=== PATIENT | female | born 1950 ===

== ENCOUNTER 2017-09-08 17:20 | Emergency (ER) | payer MEDICARE, BC ==
[2017-09-08] MEDS ORDERED: HYDROCODONE/APAP 7.5/325MG TABLET PO ONE (18:05)
--- NOTE | 2017-09-08 18:10 | Emergency Department Record ---
History of Present Illness - General Chief Complaint: Fall Injury Stated Complaint: FALL/LEGS, LARM NECK PAIN Time Seen by Provider: 09/08/17 18:05 Source: Patient Mode of Arrival: Ambulatory Limitations: No limitations - History of Present Illness Initial Comments: 67 yo female presents to ED for evaluation of a fall on ice 1.5 hours ago. Patient reports injury to the left ankle, right knee, and left elbow, denies injury to the head, neck, chest or abdomen. Patient reports that she was able to stand and ambulate following the fall injury. Patient denies anticoagulation use, does report numerous previous [facility] MD Complaint: Fall Onset/Timin -: Minutes(s) Fall From: Standing When Fall Occurred: 1 hour [employer] Fall Witnessed: Yes, by family Place Fall Occurred: Street Loss of Consciousness: None Prolonged Down Time?: No Symptoms Prior to Fall: None Location: Neck Location - Extremities: Left: Elbow, Ankle, Right: Knee Severity: Moderate Severity scale (1-10): 7 Quality: Aching Context: Tripped/slipped Associated Symptoms: Denies - Meron Coma Scale Eye Response: (4) Open spontaneously Motor Response: (6) Obeys commands Verbal Response: (5) Oriented Meron Total: 15 - Related Data Home Medications Medication Instructions Recorded Confirmed Last Taken Amlodipine Besylate [Norvasc] 5 mg PO DAILY 09/08/17 09/08/17 09/08/17 Esomeprazole Magnesium [Nexium] 20 mg PO DAILY 09/08/17 09/08/17 09/08/17 Gabapentin [Neurontin] 900 mg PO Q8H 09/08/17 09/08/17 09/08/17 Levothyroxine Sodium [Synthroid] 125 mcg PO DAILY 09/08/17 09/08/17 09/08/17 Temazepam [Restoril] 30 mg PO QHS 09/08/17 09/08/17 09/07/17 Previous Rx's Medication Instructions Recorded Hydrocodone/Acetaminophen [[place] 1 each PO Q6H PRN #10 tablet 09/08/17 5-325 Tablet] Allergies Allergy/AdvReac Type Severity Reaction Status Date / Time No Known Drug Allergies Allergy Verified 09/08/17 17:30 Travel Screening - Travel/Exposure Within Last 30 Days Have you traveled within the last 30 days?: No - Travel/Exposure Within Last Year Have you traveled outside the [place] in the last year?: No - Additonal Travel Details Have you been exposed to anyone with a communicable illness?: No - Travel Symptoms Symptom Screening: None Review of Systems Constitutional: Denies: Chills, Fever, Malaise, Night sweats Eyes: Denies: Eye discharge, Eye pain ENT: Denies: Dental pain, Ear pain Respiratory: Denies: Cough, Dyspnea Cardiovascular: Denies: Chest pain, Dyspnea on exertion Endocrine: Denies: Fatigue, Heat or cold intolerance Gastrointestinal: Denies: Abdominal pain, Nausea, Vomiting Genitourinary: Denies: Incontinence, Retention Musculoskeletal: Reports: Arthralgia. Denies: Back pain, Gout, Joint swelling Skin: Reports: Other (abrasions). Denies: Bruising, Change in color Neurological: Denies: Abnormal gait, Confusion, Headache Psychiatric: Denies: Anxiety Hematological/Lymphatic: Denies: Anemia, Blood Clots Past Medical History - SOCIAL HISTORY Smoking Status: Never smoker Alcohol Use: None Drug Use: None - RESPIRATORY Hx Respiratory Disorders: No - CARDIOVASCULAR Hx Cardio Disorders: No - NEURO Hx Neuro Disorders: No - GI Hx GI Disorders: Yes Hx Reflux: Yes - Hx Genitourinary Disorders: Yes Hx Kidney Stones: Yes - ENDOCRINE Hx Endocrine Disorders: Yes Hx Thyroid Disease: Yes - MUSCULOSKELETAL Hx Musculoskeletal Disorders: No - PSYCH Hx Psych Problems: No - HEMATOLOGY/ONCOLOGY Hx Hematology/Oncology Disorders: Yes Hx Cancer: Yes Family Medical History Any Significant Family History?: Yes Hx Cancer: Brother/Sister Hx Diabetes: Brother/Sister Hx Heart Disease: Brother/Sister Hx Liver Disease: Brother/Sister Physical Exam - General General Appearance: Alert, Oriented x3, Cooperative, Mild distress Limitations: No limitations - Head Head exam: Atraumatic, Normocephalic, Normal inspection Head exam detail: negative: Abrasion, Contusion, Yoon's sign, General tenderness, Hematoma, Laceration - Eye Eye exam: Normal appearance. negative: Conjunctival injection, Periorbital swelling, Periorbital tenderness, Scleral icterus - ENT Ear exam: negative: Auricular hematoma, Auricular trauma Nasal Exam: negative: Active bleeding, Discharge, Dried blood, Foreign body Mouth exam: negative: Drooling, Laceration, Tongue elevation - Neck Neck exam: Normal inspection. negative: Meningismus, Tenderness - Respiratory Respiratory exam: Normal lung sounds bilaterally. negative: Rhonchi, Stridor, Wheezes - Cardiovascular Cardiovascular Exam: Regular rate, Normal rhythm, Normal heart sounds Peripheral Pulses: 3+: Radial (L), Dorsalis Pedis (L) - GI/Abdominal GI/Abdominal exam: Soft. negative: Rebound, Rigid, Tenderness - Rectal Rectal exam: Deferred - exam: Deferred - Extremities Extremities exam: Tenderness, Other (Abrasions to the right knee anteriorly, mild STS to the right knee. STS to the left ankle, TTP, strong DPP left. FROM left elbow with small abrasion dorsally.). negative: Calf tenderness, Pedal edema - Back Back exam: Denies: CVA tenderness (R), CVA tenderness (L) - Neurological Neurological exam: Alert, Oriented X3 - Psychiatric Psychiatric exam: Normal affect, Normal mood - Skin Skin exam: Abrasion, Normal color Type of lesion: abrasion Course Vital Signs 09/08/17 09/08/17 17:29 17:35 Temperature 97.8 F 97.8 F Pulse Rate 60 Pulse Rate [ 60 Pulse Ox Probe] Respiratory 18 18 Rate Blood Pressure 120/74 Blood Pressure 120/74 [Right Arm] Pulse Ox 98 98 - Reevaluation(s) Reevaluation #1: 09/08/17 19:20 Left Elbow: No fracture, osteopenia, DJD Left Ankle: Osteopenia, inferior lateral mallelus avulsion fracture (likely acute), STS laterally Right Knee: No fracture, hardware is in good alignment, STS present without effusion. Patient was updated on all results, pain symptoms are improved. Will place in fracture boot with instructions to follow-up with her Orthopedist later this week in [place]. Patient agrees with the plan of care as discussed. Disposition Disposition: Discharge Clinical Impression: Multiple contusions Fracture of distal fibula Qualifiers: Encounter type: initial encounter Fracture type: closed Fracture morphology: other fracture Laterality: left Qualified Code(s): S82.832A - Other fracture of upper and lower end of left fibula, initial encounter for closed fracture Fall Qualifiers: Encounter type: initial encounter Qualified Code(s): W19.XXXA - Unspecified fall, initial encounter Disposition: Home, Self-Care Condition: (2) Stable Instructions: Ankle Fracture (ED) Additional Instructions: Return to ED if your symptoms worsen or if you have any concerns. Fracture boot when ambulating for support. Walker/Crutches as needed for weight bearing. Bartlett as needed for pain symptoms, ice, elevated left ankle. Follow-up with Dr. Reese next week, call Sunday for follow-up appointment. Prescriptions: Hydrocodone/Acetaminophen [B[place]lett 5-325 Tablet] 1 each PO Q6H PRN #10 tablet PRN Reason: Pain - Moderate (5-7) Forms: Patient Portal Access Time of Disposition: 19:26 Quality - Quality Measures Quality Measures: N/A - Blood Pressure Screening Does Patient Have Any of the Following: No Blood Pressure Classification: Pre-Hypertensive BP Reading Systolic Measurement: 120 Diastolic Measurement: 74 Screening for High Blood Pressure: < Pre-Hypertensive BP, F/U Documented > [ G8950] Pre-Hypertensive Follow-up Interventions: Referral to alternative/primary care provider.
[2017-09-08] MEDS ORDERED: HYDROCODONE/APAP 5/325MG TABLET PO ONE (19:39)
--- NOTE | 2017-09-09 22:20 | RADIOLOGY REPORT ---
EXAM: KNEE, RIGHT 4 VIEWS HISTORY: FALL. ABRASION. TECHNIQUE: Three views of the right knee. COMPARISON: None. ENCOUNTER: Initial. FINDINGS: There is mild diffuse osteopenia. No acute fracture, dislocation, or destructive bone lesion is seen. Total right knee arthroplasty changes are identified with the metallic prosthetic components appearing well seated. No definite joint effusion. Mild prepatellar soft tissue swelling. IMPRESSION: 1. TOTAL RIGHT KNEE ARTHROPLASTY CHANGES IDENTIFIED WITH THE METALLIC PROSTHETIC COMPONENTS APPEARING WELL SEATED. 2. NO DEFINITE ACUTE FRACTURE NOR DISLOCATION. 3. MINOR PREPATELLAR SOFT TISSUE SWELLING. [facility]: [id number] [facility]
--- NOTE | 2017-09-09 22:24 | RADIOLOGY REPORT ---
EXAM: ANKLE LEFT 3 VIEWS HISTORY: LATERAL PAIN POST FALL. TECHNIQUE: Three views of the left ankle. COMPARISON: None. ENCOUNTER: Initial. FINDINGS: There is diffuse osteopenia. There is suggestion of a nondisplaced fracture of the tip of the lateral malleolus with moderate adjacent soft tissue swelling. No other osseous evidence of fracture nor dislocation. There are mild degenerative changes scattered throughout the ankle and hindfoot. A small to moderate-sized plantar calcaneal spur is present and there is minor spurring at the Achilles tendon insertion on the posterior calcaneus. There is atherosclerotic calcification. IMPRESSION: 1. APPARENT NONDISPLACED AGE-INDETERMINATE FRACTURE OF THE TIP OF THE LATERAL MALLEOLUS. THERE IS MODERATE ADJACENT SOFT TISSUE SWELLING. 2. NO OTHER OSSEOUS EVIDENCE OF FRACTURE. DEGENERATIVE CHANGES. CALCANEAL SPURRING. JOB NUMBER: [id number] [facility]
--- NOTE | 2017-09-09 22:27 | RADIOLOGY REPORT ---
EXAM: ELBOW, LEFT 3 VIEWS HISTORY: OLECRANON PROCESS AREA PAIN POST FALL. TECHNIQUE: Three views of the left elbow. COMPARISON: None. ENCOUNTER: Initial. FINDINGS: There is mild diffuse osteopenia. No acute fracture, dislocation, or destructive bone lesion is seen. There are mild degenerative changes of the medial compartment. No definite anterior nor posterior fat pad sign. No suspicious focal soft tissue abnormality. IMPRESSION: 1. OSTEOPENIA. 2. NO CONVINCING ACUTE FRACTURE, DISLOCATION, NOR JOINT EFFUSION. 3. EARLY DEGENERATIVE CHANGES OF THE MEDIAL COMPARTMENT. NOT MENTIONED ABOVE IS MINIMAL ENTHESOPATHIC SPURRING ALONG THE LATERAL EPICONDYLE. [facility]BER: [id number] [facility]
== END 2017-09-08 19:49 | disposition home or self-care (01) ==
LOC: ER 17:20
DX: S82.65XA Nondisplaced fracture of lateral malleolus of left fibula, initial encounter for closed fracture (principal); S50.02XA Contusion of left elbow, initial encounter; S80.01XA Contusion of right knee, initial encounter; M54.5 Low back pain; W00.0XXA Fall on same level due to ice and snow, initial encounter
CPT/HCPCS: 99283; 99284

== ENCOUNTER 2018-11-24 14:08 | Emergency (ER) | payer MEDICARE, BC ==
[2018-11-24] MEDS ORDERED: 0.9 % SODIUM CHLORIDE 1,000 ML BAG IV ONE ×2 (14:53→16:11)
--- NOTE | 2018-11-24 15:10 | Emergency Department Record ---
History of Present Illness - General Chief Complaint: Nausea, Vomiting, Diarrhea Stated Complaint: COUGH,DIARRHEA, Time Seen by Provider: 11/24/18 14:41 Source: Patient Mode of Arrival: Ambulatory Limitations: No limitations - History of Present Illness Initial Comments: The patient is here due to not feeling well for 4 days. She has had a dry cough , nasal congestion, mild weakness, body aches, and now for the last 2 days loose stools. The patient states she has had 3-4 loose stools today. There has been no fever, AP, blood in the stool, or any recent Abx use. MD Complaint: Cough, Nasal congestion Onset/Timin -: Days(s) - Related Data Home Medications Medication Instructions Recorded Confirmed Last Taken Levothyroxine Sodium 11/24/18 Unknown Levothyroxine Sodium 112 mcg 11/24/18 Unknown Previous Rx's Medication Instructions Recorded Hydrocodone/Acetaminophen [[place] 1 each PO Q6H PRN #10 tablet 09/08/17 5-325 Tablet] Allergies Allergy/AdvReac Type Severity Reaction Status Date / Time No Known Drug Allergies Allergy Verified 11/24/18 14:28 Travel Screening - Travel/Exposure Within Last 30 Days Have you traveled within the last 30 days?: No - Travel/Exposure Within Last Year Have you traveled outside the [place] in the last year?: No - Additonal Travel Details Have you been exposed to anyone with a communicable illness?: No - Travel Symptoms Symptom Screening: Diarrhea Review of Systems Constitutional: Reports: Malaise. Denies: Chills, Fever Eyes: Denies: Eye discharge ENT: Reports: Congestion Respiratory: Reports: Cough. Denies: Dyspnea Cardiovascular: Denies: Arrhythmia, Chest pain Endocrine: Reports: Fatigue Gastrointestinal: Denies: Nausea Genitourinary: Denies: Dysuria Musculoskeletal: Denies: Arthralgia, Back pain Skin: Denies: Bruising Past Medical History - SOCIAL HISTORY Smoking Status: Never smoker Alcohol Use: None, Rare Drug Use: None - RESPIRATORY Hx Respiratory Disorders: No - CARDIOVASCULAR Hx Cardio Disorders: No - NEURO Hx Neuro Disorders: No - GI Hx GI Disorders: Yes Hx Reflux: Yes - Hx Genitourinary Disorders: Yes Hx Kidney Stones: Yes - ENDOCRINE Hx Endocrine Disorders: Yes Hx Thyroid Disease: Yes - MUSCULOSKELETAL Hx Musculoskeletal Disorders: No - PSYCH Hx Psych Problems: No - HEMATOLOGY/ONCOLOGY Hx Hematology/Oncology Disorders: Yes Hx Cancer: Yes Family Medical History Any Significant Family History?: No Hx Cancer: Brother/Sister Hx Diabetes: Brother/Sister Hx Heart Disease: Brother/Sister Hx Liver Disease: Brother/Sister Physical Exam - General General Appearance: Alert, Oriented x3, Cooperative, No acute distress - Head Head exam: Atraumatic, Normocephalic, Normal inspection - Eye Eye exam: Normal appearance, PERRL, EOMI - ENT ENT exam: Normal exam, Mucous membranes moist, Normal external ear exam, Normal orophraynx, TM's normal bilaterally Throat exam: Normal inspection. negative: Tonsillar erythema, Tonsillar exudate - Neck Neck exam: Normal inspection, Full ROM. negative: Lymphadenopathy, Meningismus , Tenderness - Respiratory Respiratory exam: Normal lung sounds bilaterally. negative: Respiratory distress - Cardiovascular Cardiovascular Exam: Regular rate, Normal rhythm, Normal heart sounds - GI/Abdominal GI/Abdominal exam: Soft, Normal bowel sounds. negative: Tenderness - Extremities Extremities exam: Normal inspection, Full ROM, Normal capillary refill. negative: Tenderness - Neurological Neurological exam: Alert, Normal gait. negative: Abnormal gait, Motor sensory deficit - Psychiatric Psychiatric exam: negative: Anxious Course Vital Signs 11/24/18 14:17 Temperature 98.1 F Pulse Rate 103 H Respiratory 18 Rate Blood Pressure 128/90 Pulse Ox 98 - Reevaluation(s) Reevaluation #1: The patient is doing very well at this time. She is feeling better after the IVF and denies any problems or pain. I did discuss the lab results and need to F /U with her PCP later this week. 11/24/18 16:31 Medical Decision Making - Data Complexity MDM Data: Labs Ordered and/or Reviewed, X-Ray Ordered and/or Reviewed - Lab Data Result diagrams: 11/24/18 15:23 11/24/18 15:23 - Radiology Data Radiology results: Report reviewed (CXR: Neg per Rad.) Disposition Disposition: Discharge Clinical Impression: Diarrhea Qualifiers: Diarrhea type: unspecified type Qualified Code(s): R19.7 - Diarrhea, unspecified Disposition: Home, Self-Care Condition: (2) Stable Instructions: Acute Diarrhea (ED) Additional Instructions: Please drink plenty of fluids and use Tylenol for pain and aching. Please see your doctor for recheck later this week. Return to the ER for any worsening symptoms. Forms: Patient Portal Access Time of Disposition: 16:33 Quality - Quality Measures Quality Measures: N/A - Blood Pressure Screening View Details: Yes Does Patient Have Any of the Following: No Blood Pressure Classification: Hypertensive Reading Systolic Measurement: 128 Diastolic Measurement: 90 Screening for High Blood Pressure: < First Hypertensive BP, F/U Documented > [ G8950] First Hypertensive Follow-up Interventions: Referral to alternative/primary care provider.
[2018-11-24 15:35] LABS: BASO % 0.4 % (0-6); GRAN % 48.1 % (47-80); HEMATOCRIT 37.4 % (35.0-47.0); HEMOGLOBIN 11.8 gm/dl (11.6-16.0); LYMPH % 35.9 % (16-45); MEAN CELL VOLUME 82.7 fl (81-97); MEAN CORPUSCULAR HEMOGLOBIN 26.1 pg (27-33); MEAN CORPUSCULAR HGB CONC 31.6 g/dl (32-36); MEAN PLATELET VOLUME 10.2 fl (7.4-10.4); MONO % 7.6 % (0-9); PLATELET COUNT 139 K/uL (130-400); RED BLOOD COUNT 4.52 M/uL (3.80-5.40); RED CELL DISTRIBUTION WIDTH 17.1 % (11.5-14.5); WHITE BLOOD COUNT W/O DIFF 4.7 K/uL (4.2-12.2)
[2018-11-24 15:47] LABS: BILIRUBIN,TOTAL 0.3 mg/dL (0.2-1.0); CREATININE 1.8 mg/dL (0.5-0.9); TOTAL PROTEIN 7.4 g/dL (6.6-8.7)
[2018-11-24 15:52] LABS: ALB/GLOB RATIO 1.2 (1.1-1.8); ALBUMIN 4.1 g/dL (4.0-5.0); C-REACTIVE PROTEIN 0.05 mg/dL (<0.5)
== END 2018-11-24 17:01 | disposition home or self-care (01) ==
LOC: ER 14:08
DX: R19.7 Diarrhea, unspecified (principal); R11.2 Nausea with vomiting, unspecified; R05 Cough; R53.1 Weakness
CPT/HCPCS: 71046; 80053; 85025; 86140; 99284; J7030